=== PATIENT | male | born 1975 | race Hispanic/Latino ===

== ENCOUNTER 2017-06-20 07:00 | Outpatient (RCR) | payer BC, SELFPAY ==
--- NOTE | 2017-04-17 08:31 | HP.PTEVAL_ITS ---
Patient's Visit Information PIOTR MUNOZ is a 42 year old M referred to Physical Therapy by Franck Colón MD with a diagnosis of Left ACL repair- anterior tib allograft , APMM. Date of Evaluation: 04/17/17 Physical Therapist: Julia Wolf - Visit Plan Frequency: 2x /Week Duration: 4 Weeks Plan: Follow protocol ACL surgery 03/31/17 - Subjective Subjective: Left ACL and meniscus tear- hiking and then bent down on his knees and tried to get up and felt a pop. After 2 weeks he went and saw Dr. Colón. Surgery was Mar 31, 2017. The first week he was using crutches and has now been walking with the knee locked out. Wears the brace all the time and sleeps in it. Most of the pain is at night- describes it as dull and achy and itching. Worst: 2/10 best: 0/10. Eases: elevate, and ice. Sleep: wakes him up from sleeping. 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 Has been back to work. Very active- likes to be outside- soccer and running. PMHx : none Meds: none - Objective Posture: good throughout. Gait: antalgic- long leg TROM brace locked in extension- decreased stance on the left LE with poor heel/toe pattern. Balance : WS but unable to SLS. HR/TR: able. Palpation: tender over medial joint line - poor patellar mobility. Observation: incisions healing well- mild bruising throughout left LE. ROM:10-80 degrees. Girth: 6' above patella:46 cm. Strength: quad set visible- SLR with minimal lag, Ankle: 5/5, Hip: 4/5, Core: fair - Goals Goal 1:: Patient will be I with HEP and progression Goal Time Frame: 4-6 Weeks Goal 2:: Patient will ambualte >300 feet with a normalized gait pattern Goal Time Frame: 4-6 Weeks Goal 3:: Patient will demo equal girth 6 above patella bilaterally Goal Time Frame: 4-6 Weeks Goal 4:: Patient will demo 0-130 degrees of ROM in the left knee Goal Time Frame: 4-6 Weeks - Rehabilitation Potential Physical Therapy Diagnosis: Patient presents with hypomobility s/p ACL repair- he has decreased ROM, strength and muscular endurance leading to poor gait and inability to perform ADL's. Rehabilitation Potential: Good - Anticipated Interventions Patient/Client Instruction: Educate patient on: Benefits of Fitness Program For the Purpose of:: To improve ability to perform ADL's Therapeutic Exercise to Include: Strength training, Power training, Endurance training, Balance training, Coordination, Agility training, Body mechanics, Postural training, Flexibilty training, Gait and locomotor training, Neuromotor development, Passive ROM, Active ROM, Dynamic Lumbar Stabilization For the Purpose of:: To improve muscle performance and motor function TENS: Yes Cryotherapy (ice pack, ice massage): Yes Thermo therapy (hot pack): Yes Ultrasound (thermal/non thermal): No Vasopneumatic device: Yes For the Purpose of:: To decrease pain, To decrease swelling/inflammation Thank you for the opportunity to evaluate your patient. For Medicare and Medicare HMO plans, please review the plan of care and approve it. It will need to be FAXED BACK to us at [phone] for Medicare purposes. Please let me know if there are questions or concerns regarding this plan of care. Physician Signature: Date:
--- NOTE | 2017-05-22 07:28 | HP.PTREVAL_ITS ---
Franck Colón MD, It has been my pleasure to treat PIOTR MUNOZ over the last 12 visits for Left ACL repair- anterior tib allograft, APMM. Please see the progress note below for an update on the physical therapy plan of care! Subjective: Patient reports that the knee is doing great- feels therapy has helped. Goes to see the MD today- hoping to get the brace off. Patient reports that he thinks he needs to continue therapy. He has no issues going up/ down stairs but does not feel 100% confident in th knee. No pain in the knee. Feels the knee is 80% better. Trying to follow directions from therapist. Objective/Function: Posture: good throughout. Gait: slightly antalgic- decreased stance on the left LE- slightly decreased heel/toe pattern. Stairs: asc/desc 8 recip with no HR- mildly uncontrolled descent. Girth: 6 above left : 46.5 cm 6 above right: 50 cm. Palpation: not tender. Observation: healed well no s/s of infection or scarring. ROM: 0-130 degrees. Strength: ( dynamometer) Right extn: 63,65,61 left extn: 35,45,48 Right flexion: 40, 42,39 Left Flexion: 20,22,19 Plan Plan: Cont with POC 2x a week for 4 weeks Goals Goal 1:: Patient will be I with HEP and progression Goal Time Frame: 4-6 Weeks Goal Progress: Progressing Goal 2:: Patient will ambualte >300 feet with a normalized gait pattern Goal Time Frame: 4-6 Weeks Goal Progress: Progressing Goal 3:: Patient will demo equal girth 6 above patella bilaterally Goal Time Frame: 4-6 Weeks Goal Progress: Progressing Goal 4:: Patient will demo 0-130 degrees of ROM in the left knee Goal Time Frame: 4-6 Weeks Goal Progress: Goal Met Anticipated Interventions Patient/Client Instruction: Educate patient on: Benefits of Fitness Program For the Purpose of:: To improve ability to perform ADL's Therapeutic Exercise to Include: Strength training, Power training, Endurance training, Balance training, Coordination, Agility training, Body mechanics, Postural training, Flexibilty training, Gait and locomotor training, Neuromotor development, Passive ROM, Active ROM, Dynamic Lumbar Stabilization For the Purpose of:: To improve muscle performance and motor function TENS: Yes Cryotherapy (ice pack, ice massage): Yes Thermo therapy (hot pack): Yes Ultrasound (thermal/non thermal): No Vasopneumatic device: Yes For the Purpose of:: To decrease pain, To decrease swelling/inflammation Please do not hesitate to contact me at [phone] by phone or Fax: if you have questions or concerns regarding this new plan of care! Sincerely, Julia Wolf
--- NOTE | 2017-06-20 07:20 | HP.PTREVAL_ITS ---
Franck Colón MD, It has been my pleasure to treat PIOTR MUNOZ over the last 19 visits for Left ACL repair- anterior tib allograft, APMM. Please see the progress note below for an update on the physical therapy plan of care! Subjective: Patient reports that he is doing great- he sees the MD next week. Wants to try to do exercise on its own and come check in 1x a month for progression Objective/Function: Gait: no deviation. Girth: Left- 48cm Right: 49.5 cm. ROM : 0-130 degrees. Strength: Right extension: 53,50,60 Left extension: 48,50, 58. Right flexion: 42, 39,35 Left flexion: 22,24,27 Plan Plan: Hold- will do 1x a month for progression Goals Goal 1:: Patient will be I with HEP and progression Goal Time Frame: 4-6 Weeks Goal Progress: Progressing Goal 2:: Patient will ambualte >300 feet with a normalized gait pattern Goal Time Frame: 4-6 Weeks Goal Progress: Progressing Goal 3:: Patient will demo equal girth 6 above patella bilaterally Goal Time Frame: 4-6 Weeks Goal Progress: Progressing Goal 4:: Patient will demo 0-130 degrees of ROM in the left knee Goal Time Frame: 4-6 Weeks Goal Progress: Goal Met Anticipated Interventions Patient/Client Instruction: Educate patient on: Benefits of Fitness Program For the Purpose of:: To improve ability to perform ADL's Therapeutic Exercise to Include: Strength training, Power training, Endurance training, Balance training, Coordination, Agility training, Body mechanics, Postural training, Flexibilty training, Gait and locomotor training, Neuromotor development, Passive ROM, Active ROM, Dynamic Lumbar Stabilization For the Purpose of:: To improve muscle performance and motor function TENS: Yes Cryotherapy (ice pack, ice massage): Yes Thermo therapy (hot pack): Yes Ultrasound (thermal/non thermal): No Vasopneumatic device: Yes For the Purpose of:: To decrease pain, To decrease swelling/inflammation Please do not hesitate to contact me at [phone] by phone or Fax: if you have questions or concerns regarding this new plan of care! Sincerely, Julia Wolf
--- NOTE | 2017-09-21 11:53 | HP.PT.NRP ---
HP - Discharge Summary (1) - Patient Information PIOTR MUNOZ was seen in my office for initial evaluation on 04/17/17. The following Plan of Care was established for this patient: Initial Frequency: 2x /Week Initial Duration: 4 Weeks - Anticipated Interventions Patient/Client Instruction: Educate patient on: Benefits of Fitness Program For the Purpose of:: To improve ability to perform ADL's Therapeutic Exercise to Include: Strength training, Power training, Endurance training, Balance training, Coordination, Agility training, Body mechanics, Postural training, Flexibilty training, Gait and locomotor training, Neuromotor development, Passive ROM, Active ROM, Dynamic Lumbar Stabilization For the Purpose of:: To improve muscle performance and motor function TENS: Yes Cryotherapy (ice pack, ice massage): Yes Thermo therapy (hot pack): Yes Ultrasound (thermal/non thermal): No Vasopneumatic device: Yes For the Purpose of:: To decrease pain, To decrease swelling/inflammation This patient was last seen in our office . Pertinent comments regarding their Physical therapy will appear below: Carroll has not attended PT in 3 months- appropriate for d/c At this point I will be discontinuing this patient from physical therapy. I would be happy to see this patient again in the future if found appropriate by the physician. Thank you! Julia Wolf
== END 2017-06-20 19:00 | disposition home or self-care (01) ==
LOC: PT 07:00
PROVIDERS: Visit Provider Orthopaedic Surgery
DX: S83.519D Sprain of anterior cruciate ligament of unspecified knee, subsequent encounter (principal)
CPT/HCPCS: 97016; 97110; 97161; 97164; 97530